=== PATIENT | female | born 1960 | race Two or more races ===

== ENCOUNTER 2021-04-17 20:18 | Outpatient (CLI) | payer OTHER | END 2021-04-17 23:00 | disposition home or self-care (01) | LOC: LAB 20:18 | DX: R10.84 Generalized abdominal pain (principal); R10.2 Pelvic and perineal pain ==

== ENCOUNTER 2021-06-27 07:00 | Inpatient (IN) | payer OTHER ==
[~2021-06-27] VITALS: Ht 165.1 cm; Wt 96.6 kg
[2021-06-27] MEDS ORDERED: LOSARTAN-HCTZ1 EAC2 PO (08:18)
[2021-06-27] MEDS ORDERED: DILT PO (08:18)
[2021-06-27] MEDS ORDERED: ATORVASTATIN CA10 MG PO (08:19)
[2021-06-27] MEDS ORDERED: DOXEPIN HCL150 MG PO (08:20)
[2021-06-27] MEDS ORDERED: HYDROX PO (08:20)
[2021-06-27] MEDS ORDERED: ZOLPID PO (08:21)
[2021-07-03] MEDS ORDERED: ZOLPIDEM TARTRA10 MG (11:13)
[2021-07-03] MEDS ORDERED: HYDROXYZINE PAM50 MG (11:13)
[2021-07-03] MEDS ORDERED: DILTIAZEM ER120 M2 (11:13)
== END 2021-07-05 17:44 | DRG 470 ==
LOC: O/R 07-03 06:57 → SURH 07-03 07:00
PROVIDERS: ADMIT Orthopaedic Surgery; ATTEND Orthopaedic Surgery
PROC: 0SRC0J9 Replacement of Right Knee Joint with Synthetic Substitute, Cemented, Open Approach (ICD-10-PCS; principal; 2021-07-03 13:10)
DX: M17.11 Unilateral primary osteoarthritis, right knee (principal); D62 Acute posthemorrhagic anemia; M85.661 Other cyst of bone, right lower leg; I10 Essential (primary) hypertension; J45.998 Other asthma